=== PATIENT | female | born 2000 | race Caucasian/White ===

== ENCOUNTER 2020-03-16 18:03 | Emergency (ER) | payer OTHER, SELFPAY ==
[~2020-03-16] VITALS: Ht 160 cm; Wt 51.3 kg
[2020-03-16 18:13] VITALS: BP 111/79; Ht 160 cm; Wt 51.3 kg
== END 2020-03-16 18:59 | disposition home or self-care (01) ==
LOC: ED 18:03
DX: J02.9 Acute pharyngitis, unspecified (principal)